=== PATIENT | female | born 1930 | race Caucasian/White ===

== ENCOUNTER 2017-05-05 20:40 | Observation (INO) | payer MEDICARE ==
[~2017-05-05] VITALS: Ht 152.4 cm; Wt 74.1 kg
[~2017-05-05 20:40] MED LIST: LISI10TA3 PO; WARF-23 PO
[2017-05-05 20:46] VITALS: BP 221/114; PULSE 87; RESP 18; TEMP 98; O2SAT 95
[2017-05-05] MEDS ORDERED: hydrALAZINE HCL 20 MG/ML VIAL IV PUSH ONE (21:00)
--- NOTE | 2017-05-05 21:03 | PD ---
HPI Chief Complaint: Abnormal Results Time Seen by Provider: 20:51 Travel History International Travel<30 days: No Contact w/Intl Traveler<30days: No Traveled to known affect area: No History of Present Illness HPI Patient is an 86-year-old female currently taking Coumadin for the past 5 years due to pulmonary embolism, presents to emergency room for evaluation of elevated INR. Patient reports that her INR was checked last week and was low at 1.6. She does take Coumadin 5mg daily, reports that she was told to take an extra dose of Coumadin x 1 day, patient misunderstood the instructions and has been taking Coumadin 10mg for the past week. Patient's son check INR today and it was >8. Patient here for INR recheck. Patient denies any fall/trauma. Denies any bleeding. Patient headache or dizziness at this time. Patient's blood pressure was elevated today, reports that she did take her lisinopril twice as instructed. Patient with no chest pain or shortness of breath, no other complaints. PFSH Past Medical History Hx Anticoagulant Therapy: Yes (Coumadin) Arthritis: Yes (osteo) Cancer: Yes Cardiovascular Problems: Yes (r bbb) High Cholesterol: Yes Chemotherapy: Yes COPD: Yes Diabetes: No Diminished Hearing: Yes (slightly diminished) Diverticulitis: Yes (CHRONIC) Deep Vein Thrombosis: Yes (PE) Endocrine: No Gastrointestinal Disorders: Yes (STRICTURE/BLOCKAGE) Genitourinary: No Hepatitis: No Hiatal Hernia: No Hypertension: Yes Immune Disorder: Yes (fibromyalgia) Musculoskeletal: Yes (arthritis, back and r shoulder) Neurologic: No Psychiatric: No Reproductive: No Respiratory: Yes (copd) Immunizations Current: Yes Thyroid Disease: No Menopausal: Yes Past Surgical History Abdominal Surgery: Yes (ex lap -16 colostomy/ -16 colostomy reversal,lower anterior resections) AICD: No Appendectomy: Yes Body Medical Devices: infusaport to l side of chest Gynecologic Surgery: Yes (VAG. HYSTERECTOMY) Hysterectomy: Yes (Partial) Joint Replacement: No Oral Surgery: Yes (T & A) Pacemaker: No Tonsillectomy: Yes Other Surgery: Yes Social History Alcohol Use: Yes (RARELY) Tobacco Use: No (FORMER) Substance Use: No Allergies-Medications (Allergen,Severity, Reaction): Coded Allergies: adhesive (Unverified Adverse Reaction, Severe, Rash, 02/21/17) redness and itching Reported Meds & Prescriptions Reported Meds & Active Scripts Active Reported Amlodipine (Amlodipine Besylate) 5 Mg Tab 5 Mg PO DAILY Lisinopril 20 Mg Tab 20 Mg PO DAILY Warfarin 5 Mg Tab 5 Mg PO DAILY Review of Systems General / Constitutional: No: Fever Eyes: No: Visual changes HENT: No: Headaches Cardiovascular: No: Chest Pain or Discomfort Respiratory: No: Shortness of Breath Gastrointestinal: No: Abdominal Pain Genitourinary: No: Dysuria Musculoskeletal: No: Pain Skin: No Rash Neurologic: No: Weakness Psychiatric: No: Depression Endocrine: No: Polydipsia Hematologic/Lymphatic: No: Easy Bruising Physical Exam Narrative GENERAL: Well-nourished, well-developed patient. SKIN: Focused skin assessment warm/dry. HEAD: Normocephalic. EYES: No scleral icterus. No injection or drainage. NECK: Supple, trachea midline. No JVD or lymphadenopathy. CARDIOVASCULAR: Regular rate and rhythm without murmurs, gallops, or rubs. RESPIRATORY: Breath sounds equal bilaterally. No accessory muscle use. GASTROINTESTINAL: Abdomen soft, non-tender, nondistended. MUSCULOSKELETAL: No cyanosis, or edema. BACK: Nontender without obvious deformity. No CVA tenderness. Data Data Last Documented VS Vital Signs Date Time Temp Pulse Resp B/P (MAP) Pulse Ox O2 Delivery O2 Flow Rate FiO2 05/05/17 21:35 20 94 05/05/17 20:46 98.0 87 221/114 (149) Orders Orders Basic Metabolic Panel (Bmp) (05/05/17 20:56) Complete Blood Count With Diff (05/05/17 20:56) Prothrombin Time / Inr (Pt) (05/05/17 20:56) Act Partial Throm Time (Ptt) (05/05/17 20:56) Ecg Monitoring (05/05/17 20:56) Iv Access Insert/Monitor (05/05/17 20:56) Hydralazine Inj (Apresoline Inj) (05/05/17 21:00) Phytonadione (Mephyton) (05/05/17 22:15) Labs Laboratory Tests Test 05/05/17 21:30 White Blood Count 9.9 TH/MM3 Red Blood Count 4.48 MIL/MM3 Hemoglobin 13.1 GM/DL Hematocrit 39.2 % Mean Corpuscular Volume 87.6 FL Mean Corpuscular Hemoglobin 29.2 PG Mean Corpuscular Hemoglobin Concent 33.4 % Red Cell Distribution Width 15.0 % Platelet Count 203 TH/MM3 Mean Platelet Volume 8.7 FL Neutrophils (%) (Auto) 65.4 % Lymphocytes (%) (Auto) 26.6 % Monocytes (%) (Auto) 4.8 % Eosinophils (%) (Auto) 2.6 % Basophils (%) (Auto) 0.6 % Neutrophils # (Auto) 6.4 TH/MM3 Lymphocytes # (Auto) 2.6 TH/MM3 Monocytes # (Auto) 0.5 TH/MM3 Eosinophils # (Auto) 0.3 TH/MM3 Basophils # (Auto) 0.1 TH/MM3 CBC Comment DIFF FINAL Differential Comment Prothrombin Time 121.8 SEC Prothromb Time International Ratio 10.0 RATIO Activated Partial Thromboplast Time 64.0 SEC Blood Urea Nitrogen 29 MG/DL Creatinine 1.20 MG/DL Random Glucose 98 MG/DL Calcium Level 8.7 MG/DL Sodium Level 138 MEQ/L Potassium Level 4.3 MEQ/L Chloride Level 103 MEQ/L Carbon Dioxide Level 26.7 MEQ/L Anion Gap 8 MEQ/L Estimat Glomerular Filtration Rate 42 ML/MIN [facility] Medical Decision Making Medical Screen Exam Complete: Yes Emergency Medical Condition: Yes Medical Record Reviewed: Yes Interpretation(s) Vital Signs Date Time Temp Pulse Resp B/P (MAP) Pulse Ox O2 Delivery O2 Flow Rate FiO2 05/05/17 20:46 98.0 87 18 221/114 (149) 95 Differential Diagnosis Coumadin coagulopathy, accelerated hypertension Narrative Course 86-year-old female who has history of pulmonary emboli, currently taking Coumadin, presents to emergency room with elevated INR. She accidently has been taking Coumadin 10mg for the past week instead of 5mg as her INR was 1.6 last week. Patient with no active bleeding or complaints at this time. BP is elevated at 221/114 - she has been taking her lisinipril as prescribed. Plan to give IV dose of hydralazine at this time and monitor patient Vital Signs Date Time Temp Pulse Resp B/P (MAP) Pulse Ox O2 Delivery O2 Flow Rate FiO2 05/05/17 21:35 20 94 05/05/17 20:46 98.0 87 18 221/114 (149) 95 Laboratory Tests Test 05/05/17 21:30 White Blood Count 9.9 TH/MM3 (4.0-11.0) Red Blood Count 4.48 MIL/MM3 (4.00-5.30) Hemoglobin 13.1 GM/DL (11.6-15.3) Hematocrit 39.2 % (35.0-46.0) Mean Corpuscular Volume 87.6 FL (80.0-100.0) Mean Corpuscular Hemoglobin 29.2 PG (27.0-34.0) Mean Corpuscular Hemoglobin Concent 33.4 % (32.0-36.0) Red Cell Distribution Width 15.0 % (11.6-17.2) Platelet Count 203 TH/MM3 (150-450) Mean Platelet Volume 8.7 FL (7.0-11.0) Neutrophils (%) (Auto) 65.4 % (16.0-70.0) Lymphocytes (%) (Auto) 26.6 % (9.0-44.0) Monocytes (%) (Auto) 4.8 % (0.0-8.0) Eosinophils (%) (Auto) 2.6 % (0.0-4.0) Basophils (%) (Auto) 0.6 % (0.0-2.0) Neutrophils # (Auto) 6.4 TH/MM3 (1.8-7.7) Lymphocytes # (Auto) 2.6 TH/MM3 (1.0-4.8) Monocytes # (Auto) 0.5 TH/MM3 (0-0.9) Eosinophils # (Auto) 0.3 TH/MM3 (0-0.4) Basophils # (Auto) 0.1 TH/MM3 (0-0.2) CBC Comment DIFF FINAL Differential Comment Prothrombin Time 121.8 SEC (9.8-11.6) Prothromb Time International Ratio 10.0 RATIO Activated Partial Thromboplast Time 64.0 SEC (24.3-30.1) Blood Urea Nitrogen 29 MG/DL (7-18) Creatinine 1.20 MG/DL (0.50-1.00) Random Glucose 98 MG/DL (74-106) Calcium Level 8.7 MG/DL (8.5-10.1) Sodium Level 138 MEQ/L (136-145) Potassium Level 4.3 MEQ/L (3.5-5.1) Chloride Level 103 MEQ/L (98-107) Carbon Dioxide Level 26.7 MEQ/L (21.0-32.0) Anion Gap 8 MEQ/L (5-15) Estimat Glomerular Filtration Rate 42 ML/MIN (>89) INR 10.0 - vit k 5mg ordered for patient Plan to obs patient Case reviewed with Dr. Bates who accepts pt to service Diagnosis Primary Impression: Coumadin toxicity Qualified Codes: T45.511A - Poisoning by anticoagulants, accidental ( unintentional), initial encounter Additional Impressions: Bleeding risk due to Coumadin and aspirin Hypertension Qualified Codes: I10 - Essential (primary) hypertension Admitting Information Admitting Physician Requests: Observation Chelsie Brunson DO May 05, 2017 21:03
[2017-05-05 21:37] LABS: AUTOMATED NEUTROPHIL # 6.4 TH/MM3 (1.8-7.7); BASOPHIL # 0.1 TH/MM3 (0-0.2); BASOPHIL % 0.6 % (0.0-2.0); EOSINOPHIL # 0.3 TH/MM3 (0-0.4); EOSINOPHIL % 2.6 % (0.0-4.0); HEMATOCRIT 39.2 % (35.0-46.0); HEMO FLAGS DIFF FINAL; LYMPH % 26.6 % (9.0-44.0); LYMPHOCYTE # 2.6 TH/MM3 (1.0-4.8); MEAN CELL VOLUME 87.6 FL (80.0-100.0); MEAN CORPUSCULAR HEMOGLOBIN 29.2 PG (27.0-34.0); MEAN CORPUSCULAR HGB CONC 33.4 % (32.0-36.0); MONO % 4.8 % (0.0-8.0); NEUT % 65.4 % (16.0-70.0); PLATELET COUNT 203 TH/MM3 (150-450); RED BLOOD COUNT 4.48 MIL/MM3 (4.00-5.30); WHITE BLOOD COUNT 9.9 TH/MM3 (4.0-11.0)
[2017-05-05 21:45] LABS: POTASSIUM 4.3 MEQ/L (3.5-5.1)
[2017-05-05 21:47] LABS: BICARBONATE 26.7 MEQ/L (21.0-32.0)
[2017-05-05 21:52] LABS: PROTHROMBIN TIME - PATIENT 121.8 SEC (9.8-11.6)
[2017-05-05] MEDS ORDERED: LISI-515 PO (21:59)
[2017-05-05] MEDS ORDERED: AMLO5TAB2 PO (21:59)
[2017-05-05 22:15] VITALS: BP 192/83; PULSE 98; RESP 20; O2SAT 97
[2017-05-05] MEDS ORDERED: PHYTONADIONE 5 MG TAB PO ONE (22:15)
[2017-05-05] MEDS ORDERED: ZOLP5TAB3 PO (22:28)
[2017-05-05] MEDS ORDERED: NALOXONE HCL 0.4 MG/ML AMP IV PUSH PRN (22:30)
[2017-05-05] MEDS ORDERED: ENALAPRILAT 1.25 MG/ML VIAL IV PUSH PRN (22:30)
[2017-05-05] MEDS ORDERED: BISACODYL 10 MG SUPP RECTAL PRN (22:30)
[2017-05-05] MEDS ORDERED: SODIUM CHLORIDE 0.9% FLUSH 10 ML FLUSH IV FLUSH PRN (22:30)
[2017-05-05] MEDS ORDERED: MAGNESIUM HYDROXIDE SUSP 30 ML CUP PO PRN (22:30)
[2017-05-05] MEDS ORDERED: SENNOSIDES 8.6 MG TAB PO PRN (22:30)
[2017-05-05] MEDS ORDERED: LACTULOSE SYRUP 20 GM/30 ML CUP PO PRN (22:30)
[2017-05-05 22:42] VITALS: BP 174/71; PULSE 94; RESP 20; O2SAT 97
[2017-05-05 23:11] VITALS: BP 133/58
[2017-05-05] MEDS: ZOLPIDEM TARTRATE 5 MG TAB PO PRN (23:21)
[2017-05-06] VITALS: BP 159/74; PULSE 96; RESP 18; TEMP 96.4; O2SAT 96
[2017-05-06 00:45] VITALS: PULSE 87
[2017-05-06] MEDS: ZOLPIDEM TARTRATE 5 MG TAB PO PRN (01:55)
[2017-05-06 04:00] VITALS: BP 132/60; PULSE 86; RESP 18; TEMP 96.8; O2SAT 97
[2017-05-06 08:00] VITALS: BP 136/69; PULSE 87; RESP 20; TEMP 96.4; O2SAT 96
[2017-05-06 08:27] VITALS: PULSE 79
[2017-05-06 08:38] LABS: INTERNATIONAL NORMALIZED RATIO 4.9 RATIO; PROTHROMBIN TIME - PATIENT 57.6 SEC (9.8-11.6)
[2017-05-06] MEDS ORDERED: LISINOPRIL 20 MG TAB PO SCH (09:00)
[2017-05-06] MEDS ORDERED: amLODIPine BESYLATE 5 MG TAB PO SCH (09:00)
[2017-05-06] MEDS ORDERED: SODIUM CHLORIDE 0.9% FLUSH 10 ML FLUSH IV FLUSH SCH (09:00)
--- NOTE | 2017-05-06 11:17 | HHI.HP ---
[facility] Berna Salamanca MD Admission Diagnosis coumadin coagulopathy, accelerated hypertension Diagnoses: (1) Coumadin toxicity Diagnosis: Principal (2) Accelerated hypertension Diagnosis: Principal Chief Complaint: Elevated INR Travel History International Travel<30 Days: No Contact w/Intl Traveler <30 Da: No Traveled to Known Affected Are: No History of Present Illness Written by Bry Meyers, acting as scribe for Dr. Quiroz on 05/06/17 at 11 :04. 86-year-old female with known history of hypertension, hyperlipidemia , non-Hodgkin lymphoma, pulmonary emboli who presented to the hospital because of elevated INR. Patient states that she is undergoing management for pulmonary emboli with Coumadin. She has her INR checked on a regular basis. She had her INR checked and was told that it was 1.3. She was on Coumadin 5 mg a day. She was told to increase the dose to 10 mg a day for 1 day and then go back to the 5 mg daily. However, patient misinterpreted and has been taking 10 mg daily since the increase. The patient's son is a home health care nurse and checked her INR and it was greater than 8. Her systolic blood pressure was found to be 220 systolic, because of those reasons her son brought her to the emergency department for evaluation. On presentation her blood pressure was 221 /114. Patient was given Apresoline with good results. Patient's blood pressure has normalized at this time. Laboratory studies were performed and INR was 10. Patient was given vitamin K 5 mg by mouth. Her INR this morning is 4.9. Patient denies any signs of any bleeding. Patient is doing well this morning. Denies any new complaints. She states that she is very eager to go home. Review of Systems Except as stated in HPI: all other systems reviewed are Neg Past Family Social History Past Medical History Hypertension Hyperlipidemia Non-Hodgkin lymphoma History of bowel obstruction Pulmonary emboli History diverticulosis Fibromyalgia Chronic obstructive pulmonary disease Past Surgical History Partial hysterectomy Fusion port left chest Colectomy with colostomy then subsequent colostomy reversal Tonsillectomy Reported Medications Reported Meds & Active Scripts Active Reported Zolpidem (Zolpidem Tartrate) 5 Mg Tab 5 Mg PO HS PRN Amlodipine (Amlodipine Besylate) 5 Mg Tab 5 Mg PO DAILY Lisinopril 20 Mg Tab 20 Mg PO DAILY Warfarin 5 Mg Tab 5 Mg PO DAILY Allergies: Coded Allergies: adhesive (Unverified Adverse Reaction, Severe, Rash, 02/21/17) redness and itching Family History Reviewed and patient states that she is adopted does not know her family history Social History Patient drinks a small amount of vodka and [place] juice daily. She does have history of tobacco use. No indication of illicit drug use Physical Exam Vital Signs Vital Signs Date Time Temp Pulse Resp B/P (MAP) Pulse Ox O2 Delivery O2 Flow Rate FiO2 05/06/17 08:00 96.4 87 20 136/69 (91) 96 05/06/17 04:00 96.8 86 18 132/60 (84) 97 05/06/17 00:45 Nasal Cannula 2.00 05/06/17 00:45 87 05/06/17 00:00 96.4 96 18 159/74 (102) 96 05/05/17 23:11 93 20 133/58 (83) 97 05/05/17 22:42 94 20 174/71 (105) 97 05/05/17 22:15 98 20 192/83 (119) 97 Nasal Cannula 2.00 05/05/17 21:35 20 94 05/05/17 20:46 98.0 87 18 221/114 (149) 95 Physical Exam GENERAL: Well-developed, well-nourished, in no acute distress. alert and orientated HEENT: Head is normocephalic without any lesions or masses noted. Facial features are symmetric. Eyes: Pupils equal round reactive to light. Extraocular muscles are intact. Conjunctivae were clear. Oropharyngeal: Pharynx without any erythema edema. Tongue is midline without deviation. Buccal mucosa is moist without any masses or lesions NECK: Supple without any masses. Trachea midline no deviation. No JVD, no bruits are appreciated CARDIAC: Regular rhythm, regular rate. S1/S2 are heard. No murmurs gallops or rubs. LUNGS: Clear to auscultation bilaterally. No wheeze, rhonchi or rales. No use of accessory muscles on inspiration or expiration. ABDOMEN: Soft, nontender. Nondistended. Bowel sounds heard in all 4 quadrants. No organomegaly or masses. Negative rebound, negative guarding EXTREMITIES: No edema, pulses are equal bilaterally. No cyanosis or clubbing. Decreased range of motion right shoulder secondary to rotator cuff pain NEUROLOGY: Mood and affect appear appropriate. Cranial nerves II through XII grossly intact. Muscle strength 5/5 in upper and lower extremities bilaterally. Deep tendon reflexes are 2+ in upper and lower extremities bilaterally. Laboratory Laboratory Tests Test 05/05/17 21:30 05/06/17 07:40 White Blood Count 9.9 Red Blood Count 4.48 Hemoglobin 13.1 Hematocrit 39.2 Mean Corpuscular Volume 87.6 Mean Corpuscular Hemoglobin 29.2 Mean Corpuscular Hemoglobin Concent 33.4 Red Cell Distribution Width 15.0 Platelet Count 203 Mean Platelet Volume 8.7 Neutrophils (%) (Auto) 65.4 Lymphocytes (%) (Auto) 26.6 Monocytes (%) (Auto) 4.8 Eosinophils (%) (Auto) 2.6 Basophils (%) (Auto) 0.6 Neutrophils # (Auto) 6.4 Lymphocytes # (Auto) 2.6 Monocytes # (Auto) 0.5 Eosinophils # (Auto) 0.3 Basophils # (Auto) 0.1 CBC Comment DIFF FINAL Differential Comment Prothrombin Time 121.8 57.6 Prothromb Time International Ratio 10.0 4.9 Activated Partial Thromboplast Time 64.0 Blood Urea Nitrogen 29 Creatinine 1.20 Random Glucose 98 Calcium Level 8.7 Sodium Level 138 Potassium Level 4.3 Chloride Level 103 Carbon Dioxide Level 26.7 Anion Gap 8 Estimat Glomerular Filtration Rate 42 Result Diagram: 05/05/17212905/05/172129 Caprini VTE Risk Assessment Caprini VTE Risk Assessment: Mod/High Risk (score >= 2) Caprini Risk Assessment Model Point Value = 1 Point Value = 2 Point Value = 3 Point Value = 5 Age 41-60 Minor surgery BMI > 25 kg/m2 Swollen legs Varicose veins or History of unexplained or recurrent spontaneous Oral contraceptives or hormone replacement Sepsis (< 1 month) Serious lung disease, including pneumonia (< 1 month) Abnormal pulmonary function Acute myocardial infarction Congestive heart failure (< 1 month) History of inflammatory bowel disease Medical patient at bed rest Age 61-74 Arthroscopic surgery Major open surgery (> 45 min) Laparoscopic surgery (> 45 min) Malignancy Confined to bed (> 72 hours) Immobilizing plaster cast Central venous access Age >= 75 History of VTE Family history of VTE Factor V Leiden Prothrombin [id number] Lupus anticoagulant Anticardiolipin antibodies Elevated serum homocysteine Heparin-induced thrombocytopenia Other congenital or acquired thrombophilia Stroke (< 1 month) Elective arthroplasty Hip, pelvis, or leg fracture Acute spinal cord injury (< 1 month) Prophylaxis Regimen Total Risk Factor Score Risk Level Prophylaxis Regimen 0-1 Low Early ambulation 2 Moderate Order ONE of the following: *Sequential Compression Device (SCD) *Heparin 5000 units SQ BID 3-4 Higher Order ONE of the following medications: *Heparin 5000 units SQ TID *Enoxaparin/Lovenox 40 mg SQ daily (WT < 150 kg, CrCl > 30 mL/min) *Enoxaparin/Lovenox 30 mg SQ daily (WT < 150 kg, CrCl > 10-29 mL/min) *Enoxaparin/Lovenox 30 mg SQ BID (WT < 150 kg, CrCl > 30 mL/min) AND/OR *Sequential Compression Device (SCD) 5 or more Highest Order ONE of the following medications: *Heparin 5000 units SQ TID (Preferred with Epidurals) *Enoxaparin/Lovenox 40 mg SQ daily (WT < 150 kg, CrCl > 30 mL/min) *Enoxaparin/Lovenox 30 mg SQ daily (WT < 150 kg, CrCl > 10-29 mL/min) *Enoxaparin/Lovenox 30 mg SQ BID (WT < 150 kg, CrCl > 30 mL/min) AND *Sequential Compression Device (SCD) Assessment and Plan Assessment and Plan Supratherapeutic INR/Coumadin toxicity, improved -Secondary to misinterpretation of directions of use, no signs of any active bleeding -Status post vitamin K in the emergency department -Continue monitor PT/INR on a daily basis -Patient to notify her primary medical doctor in outpatient setting of INR results for resumption of Coumadin -Discussed with patient other medications such as Xarelto, Eliquis, Pradaxa for therapy. Patient to discuss with her primary medical doctor Accelerated hypertension, improved -Improved after use of Apresoline -Home medications continued. Increase amlodipine to 10 mg daily. Pulmonary emboli -Patient anticoagulated with Coumadin Renal insufficiency Stable compared to baseline. - outpt followup. DVT prevention -Patient is on Coumadin Discharge disposition Discharge home in stable condition Activity: Ad greg. Diet: Healthy heart diet Medications per medication reconciliation Follow-up primary medical doctor and notify him of PT/INR results Discussed Condition With This note was transcribed by ashley Meyers. I, Dr. William Quiroz personally performed the history, physical exam, and medical decision making; and confirmed the accuracy of the information in the transcribed note. Authenticated by Dr. William Quiroz on 05/06/17 at 13:20. Problem Qualifiers (1) Coumadin toxicity: Qualified Codes: T45.511A - Poisoning by anticoagulants, accidental ( unintentional), initial encounter Bry Meyers May 06, 2017 11:17 William Quiroz DO May 06, 2017 13:20
--- NOTE | 2017-05-06 11:18 | HHI.DCPOC ---
Discharge Care Plan Diagnosis: (1) Coumadin toxicity (2) Accelerated hypertension Goals to Promote Your Health * To prevent worsening of your condition and complications * To maintain your health at the optimal level Directions to Meet Your Goals Take your medications as prescribed Follow your dietary instruction Follow activity as directed Keep your appointments as scheduled Take your immunizations and boosters as scheduled If your symptoms worsen call your PCP, if no PCP go to Urgent Care Center or Emergency Room Smoking is Dangerous to Your Health. Avoid second hand smoke Call the 24-hour hour crisis hotline for domestic abuse at Bry Meyers May 06, 2017 11:18
[2017-05-06] MEDS ORDERED: AMLO10 PO (11:31)
[2017-05-06] MEDS ORDERED: WARF-23 PO (13:22)
== END 2017-05-06 12:55 | disposition home or self-care (01) ==
LOC: PHED 20:40 → PHEDA 22:23 → PH3A 23:59
PROVIDERS: ADMIT Hospitalist; ATTEND Hospitalist
DX: T45.511A Poisoning by anticoagulants, accidental (unintentional), initial encounter (principal); I10 Essential (primary) hypertension; I26.99 Other pulmonary embolism without acute cor pulmonale; J44.9 Chronic obstructive pulmonary disease, unspecified; E78.5 Hyperlipidemia, unspecified; M79.7 Fibromyalgia; Z79.01 Long term (current) use of anticoagulants; Z85.72 Personal history of non-Hodgkin lymphomas; Z87.891 Personal history of nicotine dependence
CPT/HCPCS: 80048; 85025; 85610; 85730; 96374; 99285; G0378; J0360

== ENCOUNTER 2017-09-07 12:49 | Emergency (ER) | payer MEDICARE ==
[~2017-09-07] VITALS: Ht 152.4 cm; Wt 77.0 kg
[~2017-09-07 12:49] MED LIST changes: +AMLO10 PO; +LISI-515 PO; -LISI10TA3 PO; +ZOLP5TAB3 PO
[2017-09-07 13:27] VITALS: BP 172/83; PULSE 98; RESP 18; TEMP 97.6; O2SAT 97
--- NOTE | 2017-09-07 14:16 | PD ---
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) Endocrine: No Gastrointestinal Disorders: Yes (COLOSTOMY WITH REVERSAL 2016) Genitourinary: No Hepatitis: No Hiatal Hernia: No Hypertension: Yes Immune Disorder: Yes (FIBROMYALGIA) Musculoskeletal: Yes Neurologic: No Psychiatric: No Reproductive: No Respiratory: Yes Immunizations Current: Yes Radiation Therapy: No Thyroid Disease: No Menopausal: Yes Past Surgical History Abdominal Surgery: Yes AICD: No Appendectomy: Yes Body Medical Devices: infusaport to l side of chest (noaccess) Gynecologic Surgery: Yes Hysterectomy: Yes (PARTIAL) Joint Replacement: No Oral Surgery: Yes Pacemaker: No Tonsillectomy: Yes Other Surgery: Yes Social History Alcohol Use: Yes (RARELY) Tobacco Use: No (FORMER) Substance Use: No Allergies-Medications (Allergen,Severity, Reaction): Coded Allergies: adhesive (Unverified Adverse Reaction, Severe, Rash, 09/07/17) redness and itching Reported Meds & Prescriptions Reported Meds & Active Scripts Active Warfarin 5 Mg Tab 5 Mg PO DAILY Resume Coumadin when instructed by physician based on INR over the next few days Norvasc (Amlodipine Besylate) 10 Mg Tab 10 Mg PO DAILY Reported Zolpidem (Zolpidem Tartrate) 5 Mg Tab 5 Mg PO HS PRN Lisinopril 20 Mg Tab 20 Mg PO DAILY Data Data Last Documented VS Vital Signs Date Time Temp Pulse Resp B/P (MAP) Pulse Ox O2 Delivery O2 Flow Rate FiO2 09/07/17 13:27 97.6 98 18 172/83 (112) 97 Stacey Tejada MD Sep 07, 2017 14:16
--- NOTE | 2017-09-07 14:17 | PD ---
HPI Chief Complaint: Musculoskeletal Complaint Time Seen by Provider: 14:15 Travel History International Travel<30 days: No Contact w/Intl Traveler<30days: No Traveled to known affect area: No History of Present Illness HPI 87-year-old female brought in by son with several complaints. Patient has known right sided shoulder pain followed by Dr. Mcdowell. Patient was doing some laundry earlier today and had pain in the left shoulder. She now is unable to move the left shoulder. She has been seen by pain management for her right shoulder over the past several weeks. Patient also has complaints of increased shortness of breath with exertion over the past week. Patient has history of COPD, but does not use inhalers at home. Patient has no history of CHF or heart disease in the past according to the son. Patient has no nausea, vomiting, or chest pain. Patient states the shortness of breath with exertion has been worse in the last week. She does not have significant swelling in the lower extremities. Pain in the left shoulder is worse with movement. It is currently 9 out of 10. Patient states she took some tramadol at 10 AM this morning without any relief. Patient has no increased cough, or fever or chills. She is allergic to adhesive. 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) Endocrine: No Gastrointestinal Disorders: Yes (COLOSTOMY WITH REVERSAL 2015) Genitourinary: No Hepatitis: No Hiatal Hernia: No Hypertension: Yes Immune Disorder: Yes (FIBROMYALGIA) Musculoskeletal: Yes Neurologic: No Psychiatric: No Reproductive: No Respiratory: Yes Immunizations Current: Yes Radiation Therapy: No Thyroid Disease: No Menopausal: Yes Past Surgical History Abdominal Surgery: Yes AICD: No Appendectomy: Yes Body Medical Devices: infusaport to l side of chest (noaccess) Gynecologic Surgery: Yes Hysterectomy: Yes (PARTIAL) Joint Replacement: No Oral Surgery: Yes Pacemaker: No Tonsillectomy: Yes Other Surgery: Yes Social History Alcohol Use: Yes (RARELY) Tobacco Use: No (FORMER) Substance Use: No Allergies-Medications (Allergen,Severity, Reaction): Coded Allergies: adhesive (Unverified Adverse Reaction, Severe, Rash, 09/07/17) redness and itching Reported Meds & Prescriptions Reported Meds & Active Scripts Active Warfarin 5 Mg Tab 5 Mg PO DAILY Resume Coumadin when instructed by physician based on INR over the next few days Norvasc (Amlodipine Besylate) 10 Mg Tab 10 Mg PO DAILY Reported Zolpidem (Zolpidem Tartrate) 5 Mg Tab 5 Mg PO HS PRN Lisinopril 20 Mg Tab 20 Mg PO DAILY Review of Systems General / Constitutional: No: Fever Eyes: No: Visual changes HENT: No: Headaches Cardiovascular: Positive: Dyspnea on exertion, No: Chest Pain or Discomfort, Palpitations, Irregular Rhythm, Tachycardia, Diaphoresis Respiratory: Positive: Shortness of Breath (See history of present), No: Cough , Wheezing, Sneezing, Orthopnea, Hemoptysis, Night Sweats, Pleuritic Pain Gastrointestinal: No: Nausea, Vomiting, Diarrhea, Abdominal Pain Genitourinary: No: Dysuria Musculoskeletal: Positive: Arthralgias, Limited ROM, Pain (See history of present illness) Skin: No Rash Neurologic: No: Weakness Psychiatric: No: Depression Endocrine: No: Polydipsia Hematologic/Lymphatic: No: Easy Bruising Physical Exam Narrative GENERAL: Patient appears in mild to moderate distress per SKIN: Warm and dry. Normal color. Normal turgor. Patient has some old ecchymosis regions from her atrophic skin, but no signs of acute trauma. HEAD: Atraumatic. Normocephalic. EYES: Pupils equal and round. No scleral icterus. No injection or drainage. ENT: No nasal bleeding or discharge. Mucous membranes pink and moist. Pharynx is clear. Airways patent NECK: Trachea midline. Supple and nontender. CARDIOVASCULAR: Regular rate and rhythm. No murmurs gallops or rubs appreciated. RESPIRATORY: No accessory muscle use. Patient has moderate bilateral crackles to both bases to auscultation. Breath sounds equal bilaterally. GASTROINTESTINAL: Abdomen soft, non-tender, nondistended. Hepatic and splenic margins not palpable. MUSCULOSKELETAL: Extremities without clubbing, cyanosis, or edema. No obvious deformities. Patient has significant pain to palpation of the right anterior shoulder. No crepitus is appreciated. Exam is severely limited secondary to her pain in both shoulders. NEUROLOGICAL: Awake and alert. No obvious cranial nerve deficits. Motor grossly within normal limits. Five out of 5 muscle strength in the arms and legs. Normal speech. PSYCHIATRIC: Appropriate mood and affect; insight and judgment normal. Data Data Last Documented VS Vital Signs Date Time Temp Pulse Resp B/P (MAP) Pulse Ox O2 Delivery O2 Flow Rate FiO2 09/07/17 13:27 97.6 98 18 172/83 (112) 97 Orders Orders Complete Blood Count With Diff (09/07/17 14:22) Comprehensive Metabolic Panel (09/07/17 14:) B-Type Natriuretic Peptide (09/07/17 14:22) Act Partial Throm Time (Ptt) (09/07/17 14:22) Prothrombin Time / Inr (Pt) (09/07/17 14:22) Ckmb (Isoenzyme) Profile (09/07/17:) Troponin I (09/07/17:) Iv Access Insert/Monitor (09/07/17 14:) Electrocardiogram (09/07/17:) Ecg Monitoring (09/07/17:) Oximetry (09/07/17 14:) Oxygen Administration (09/07/17:) Chest, Single Ap (09/07/17 14:22) Sodium Chloride 0.9% Flush (Ns Flush) (09/07/17 14:30) Methylprednisolone So Succ Inj (Solumedr (09/07/17 14:30) Albuterol-Ipratropium Neb (Duoneb Neb) (09/07/17 14:30) Shoulder, Complete (>2vws) (09/07/17 14:22) Acetamin-Hydrocod 325-5 Mg ([place] 5-325 (09/07/17 14:30) MDM Medical Decision Making Medical Screen Exam Complete: Yes Emergency Medical Condition: Yes Medical Record Reviewed: Yes Differential Diagnosis Bilateral shoulder pain. Acute left shoulder pain. Possible fracture. Bursitis. Rotator cuff tear. Increased shortness of breath with exertion. Cardiac syndrome. CHF. COPD with acute exacerbation. Narrative Course Patient appears uncomfortable but medically stable at time of exam. Chest x-ray and shoulder x-ray of the left shoulder is ordered. IV access is obtained. CBC, CMP, cardiac panel, proBNP, and coagulation studies are ordered. Patient is given a DuoNeb 1. Patient is given 125 mg Solu-Medrol IV. Patient is given Lortab 5/325 1 p.o. now. Chest x-ray showed: Widespread interstitial lung disease unchanged since June 2016. Marked right shoulder osteoarthritis. Left shoulder x-ray showed: Spurring of the glenohumeral joint. No acute fracture. Prominent acromial undersurface spurring. Condition: Stable Bib Siddiqui Sep 07, 2017 14:17
[2017-09-07] MEDS ORDERED: RESP: ALBUTEROL 2.5 MG/IPRATROPIUM 0.5 MG NEB (SCH) INH ONE (14:30)
[2017-09-07] MEDS ORDERED: methylPREDNISolone SOD SUCC 125 MG/2 ML VIAL IV PUSH ONE (14:30)
[2017-09-07] MEDS ORDERED: ACETAMINOPHEN/HYDROcodone 325 MG/5 MG TAB PO ONE ×2 (14:30→17:15)
[2017-09-07] MEDS ORDERED: SODIUM CHLORIDE 0.9% FLUSH 10 ML FLUSH IVF PRN (14:30)
--- NOTE | 2017-09-07 14:47 | RADRPT ---
EXAM DATE/TIME: 09/07/2017 14:37 [facility] COMPARISON: No previous studies available for comparison. INDICATIONS : Shortness of breath. MEDICAL HISTORY : Hypertension. Chronic obstructive pulmonary disease. Non Hodgkins lymphoma. SURGICAL HISTORY : Infusaport. ENCOUNTER: Initial ACUITY: 1 day PAIN SCORE: 0/10 LOCATION: Bilateral chest FINDINGS: A single view of the chest demonstrates widespread diffuse interstitial lung disease. Left IJ Infuse- a-Port catheter in good position. The cardiomediastinal contours are unremarkable. Osseous structur es are intact. CONCLUSION: Widespread interstitial lung disease unchanged since June 2016. Marked right shoulder osteoarthri tis Arias Saha MD on September 07, 2017 at 14:45 Board Certified Radiologist. This report was verified electronically.
--- NOTE | 2017-09-07 14:48 | RADRPT ---
EXAM DATE/TIME: 09/07/2017 14:34 [facility] COMPARISON: No previous studies available for comparison. INDICATIONS : Left shoulder pain. Lifted heavy object and heard pop. MEDICAL HISTORY : None. SURGICAL HISTORY : None. ENCOUNTER: Initial ACUITY: 1 day PAIN SCORE: 7/10 LOCATION: Left shoulder. FINDINGS: Multiple view examination of the left shoulder demonstrates no evidence of fracture or dislocation. M ild spurring of the glenohumeral joint. Acromial undersurface spurring. The acromioclavicular joints are maintained. There is normal range of motion between internal and external rotation. Bony yarn examiner alization is normal. CONCLUSION: Spurring of the glenohumeral joint. No acute fracture. Prominent acromial undersurface spurring Arias Saha MD on September 07, 2017 at 14:47 Board Certified Radiologist. This report was verified electronically.
[2017-09-07 15:26] LABS: AUTOMATED NEUTROPHIL # 7.7 TH/MM3 (1.8-7.7); BASOPHIL % 0.3 % (0.0-2.0); EOSINOPHIL # 0.1 TH/MM3 (0-0.4); EOSINOPHIL % 0.6 % (0.0-4.0); HEMATOCRIT 39.2 % (35.0-46.0); HEMOGLOBIN 13.3 GM/DL (11.6-15.3); LYMPHOCYTE # 2.2 TH/MM3 (1.0-4.8); MEAN CORPUSCULAR HEMOGLOBIN 30.8 PG (27.0-34.0); MEAN CORPUSCULAR HGB CONC 33.9 % (32.0-36.0); MEAN PLATELET VOLUME 8.7 FL (7.0-11.0); MONOCYTE # 0.5 TH/MM3 (0-0.9); NEUT % 73.1 % (16.0-70.0); PLATELET COUNT 386 TH/MM3 (150-450); RED CELL DISTRIBUTION WIDTH 14.7 % (11.6-17.2); WHITE BLOOD COUNT 10.5 TH/MM3 (4.0-11.0)
[2017-09-07 15:35] LABS: INTERNATIONAL NORMALIZED RATIO 2.7 RATIO; PROTHROMBIN TIME - PATIENT 27.1 SEC (9.8-11.6)
[2017-09-07 15:52] LABS: ALBUMIN 3.6 GM/DL (3.4-5.0); ALKALINE PHOSPHATASE 156 U/L (45-117); ALT (GPT) 20 U/L (10-53); AST (GOT) 32 U/L (15-37); BICARBONATE 25.6 MEQ/L (21.0-32.0); BLOOD UREA NITROGEN 28 MG/DL (7-18); CALCIUM 9.4 MG/DL (8.5-10.1); CHLORIDE 102 MEQ/L (98-107); CREATININE 1.42 MG/DL (0.50-1.00); GLOMERULAR FILTRATION RATE 35 ML/MIN (>89); GLUCOSE,RANDOM 108 MG/DL (74-106); SODIUM (NA) 136 MEQ/L (136-145); TOTAL BILIRUBIN ADULT 0.4 MG/DL (0.2-1.0); TOTAL PROTEIN 8.3 GM/DL (6.4-8.2); TROPONIN I LESS THAN 0.02 NG/ML (0.02-0.05)
[2017-09-07] MEDS ORDERED: HYDR-3516 PO (16:34)
[2017-09-07] MEDS ORDERED: PRED20 PO (16:34)
[2017-09-07 16:46] VITALS: O2SAT 100
[2017-09-07 17:12] VITALS: BP 162/79; PULSE 85; RESP 16; O2SAT 97
--- NOTE | 2017-09-08 08:59 | EKG ---
Date Performed: 09/07/2017 Time Performed: 15:22:55 PTAGE: 87 years EKG: Sinus rhythm MARKED LEFT AXIS DEVIATION RIGHT BUNDLE BRANCH BLOCK MINIMAL VOLTAGE CRITERIA FOR LVH, CONSIDER NORM AL VARIANT ABNORMAL ECG PREVIOUS TRACING : 04/18/2016 09.31 Since the prior tracing, there has been no significant mcclain DOCTOR: Mercedes Degroot Interpretating Date/Time 09/08/2017 08:56:12
== END 2017-09-07 17:23 | disposition home or self-care (01) ==
LOC: NEPD 12:49
DX: M19.012 Primary osteoarthritis, left shoulder (principal); J84.9 Interstitial pulmonary disease, unspecified; I10 Essential (primary) hypertension; R06.02 Shortness of breath; Z87.891 Personal history of nicotine dependence
CPT/HCPCS: 71045; 73030; 80053; 82550; 82552; 83880; 84484; 85025; 85610; 85730; 93005; 94664; 96374; 99285; J2930